=== PATIENT | female | born 1965 | race African-American/Black ===

== ENCOUNTER 2022-10-28 18:50 | Inpatient (IN) | payer OTHER ==
[2022-10-28 19:24] VITALS: BMI 24.7
[2022-10-28] MEDS ORDERED: LACTATED RINGERS SOLUTION 1000 ML INFUS.BAG IV ONE ×3 (19:54→23:33)
[2022-10-28] MEDS ORDERED: FENTANYL CITRATE/PF 50 MCG/ML VIAL ONE (20:43)
[2022-10-28 20:52] LABS: VENOUS BASE EXCESS -3.1 mmol/L (-2-2); VENOUS PCO2 46.6 mmHg (38-52); VENOUS PH 7.318 (7.310-7.410)
[2022-10-28 21:01] LABS: HEMATOCRIT 38.4 % (32.4-45.2); MCH 28.8 pg (25.7-33.7); MCHC 33.8 g/dl (32.0-36.0); MEAN CELL VOLUME 85.2 fl (80-96); MEAN PLT VOLUME 7.5 fl (7.5-11.1); PLATELET COUNT 59 10^3/uL (134-434); RBC 4.51 M/mm3 (3.60-5.2); RDW 16.9 % (11.6-15.6); WHITE BLOOD COUNT 3.4 K/mm3 (4.0-10.0)
[2022-10-28 21:03] LABS: INR 1.16 (0.83-1.09); PROTHROMBIN TIME (PATIENT) 13.4 SEC (9.7-13.0)
[2022-10-28 21:05] LABS: ACTIVATED PTT 37.8 SECONDS (25.2-36.5)
[2022-10-28 21:20] LABS: POTASSIUM 3.4 mmol/L (3.5-5.1)
[2022-10-28 21:22] LABS: CALCIUM 8.3 mg/dL (8.5-10.1)
[2022-10-28 21:23] LABS: ALBUMIN 2.6 g/dl (3.4-5.0); BLOOD UREA NITROGEN 7.8 mg/dL (7-18); MAGNESIUM 1.5 mg/dL (1.8-2.4)
[2022-10-28 21:26] LABS: CREATININE 0.5 mg/dL (0.55-1.3)
[2022-10-28 21:27] LABS: TOT PROT 5.5 g/dl (6.4-8.2)
[2022-10-28 21:28] LABS: BILIRUBIN,TOTAL 1.3 mg/dL (0.2-1)
[2022-10-28 21:51] LABS: ANISOCYTOSIS 1+; MACROCYTOSIS 0
[2022-10-28 22:00] LABS: EPI CELLS 18 /uL (0-25.1); HYALINE CASTS 5 /uL (0-3.1); URINE APPEARANCE CLEAR; URINE BACTERIA 2 /uL (0-1359); URINE BILIRUBIN 1+ (NEGATIVE); URINE COLOR DK YELLOW; URINE GLUCOSE (UA) NEGATIVE (NEGATIVE); URINE KETONE 3+ (NEGATIVE); URINE LEUK ESTERASE TRACE (NEGATIVE); URINE NITRITE NEGATIVE (NEGATIVE); URINE PROTEIN 1+ (NEGATIVE); URINE RBC 21 /uL (0-23.9); URINE WBC 19 /uL (0-25.8)
[2022-10-28] MEDS ORDERED: MAGNESIUM 1GM/D5W 100ML - 100 ML IVPB IVPB ONE (22:36)
[2022-10-28 23:21] LABS: URINE CRYSTALS NONE SEEN /hpf
[2022-10-28] MEDS ORDERED: ACETAMINOPHEN 1000 MG/100 ML BAG IVPB ONE (23:55)
[2022-10-29] MEDS ORDERED: KCL 10 MEQ IVPB 10 MEQ/100 ML INFUS.BAG IVPB ONE ×2 (00:05→02:39)
[2022-10-29] MEDS ORDERED: ACETAMINOPHEN INJECTION 100 ML IVPB ONE (00:05)
[2022-10-29] MEDS: KCL 10 MEQ IVPB 10 MEQ/100 ML INFUS.BAG IVPB SCH ×2 (01:21→03:08)
[2022-10-29] MEDS ORDERED: LACTATED RINGERS SOLUTION 1,000 ML/1,000 ML INFUS.BAG IV SCH (04:00)
[2022-10-29] MEDS ORDERED: SODIUM CHLORIDE 1,000 ML IV SCH (04:00)
[2022-10-29] MEDS ORDERED: MAGNESIUM SULF 50% (8.12 MEQ/2 ML-1 GM VIAL) IVPB ONE (05:30)
[2022-10-29] MEDS ORDERED: KCL 10 MEQ IVPB 10 MEQ/100 ML INFUS.BAG IVPB SCH (07:15)
[2022-10-29 07:35] LABS: BASO % 0.3 % (0-2.0); HEMATOCRIT 38.5 % (32.4-45.2); HEMOGLOBIN 12.7 GM/dL (10.7-15.3); LYMPH % 49.7 % (8-40); MCH 28.7 pg (25.7-33.7); MCHC 32.9 g/dl (32.0-36.0); MEAN CELL VOLUME 87.2 fl (80-96); MEAN PLT VOLUME 7.7 fl (7.5-11.1); MONO % 9.2 % (3.8-10.2); NEUT % 40.8 % (42.8-82.8); PLATELET COUNT 68 10^3/uL (134-434); RBC 4.41 M/mm3 (3.60-5.2); RDW 16.5 % (11.6-15.6); WHITE BLOOD COUNT 3.2 K/mm3 (4.0-10.0)
[2022-10-29] MEDS: POLYETHYLENE GLYCOL (HEALTHYLAX) 3350 17 GM PACKET PO SCH ×3 (07:40→22:11)
[2022-10-29 08:02] LABS: POTASSIUM 3.7 mmol/L (3.5-5.1)
[2022-10-29] MEDS: LEVOTHYROXINE NA 125 MCG TABLET (FP) PO SCH (08:07)
[2022-10-29 08:28] LABS: BLOOD UREA NITROGEN 6.2 mg/dL (7-18)
[2022-10-29 08:29] LABS: ALBUMIN 2.5 g/dl (3.4-5.0); MAGNESIUM 1.7 mg/dL (1.8-2.4)
[2022-10-29 08:31] LABS: CREATININE 0.4 mg/dL (0.55-1.3); PHOSPHOROUS 4.7 mg/dL (2.5-4.9)
[2022-10-29 08:32] LABS: BILIRUBIN,TOTAL 1.3 mg/dL (0.2-1); TOT PROT 5.3 g/dl (6.4-8.2)
[2022-10-29] MEDS ORDERED: BISACODYL 5 MG TABLET.DR (FP) PO ONE (11:01)
[2022-10-29] MEDS ORDERED: LACTULOSE 20 GM/30 ML UDC (FOR ORAL USE ONLY) PO PRN (11:01)
[2022-10-29 11:11] LABS: BILIRUBIN,DIRECT 0.5 mg/dL (0.0-0.2)
[2022-10-29] MEDS ORDERED: MAGNESIUM 2GM/50ML STERILE WATER IVPB IVPB ONE (12:45)
[2022-10-29] MEDS: ACETAMINOPHEN 325 MG TABLET (FP) PO PRN ×2 (16:29→22:12)
[2022-10-29] MEDS ORDERED: LACTATED RINGERS SOLUTION 1,000 ML/1,000 ML INFUS.BAG IV STA (17:29)
[2022-10-29] MEDS ORDERED: PIPERACILLIN/TAZOB 4.5 GM 4.5 GM in DEXTROSE 5%-WATER 100 ML IVPB SCH ×2 (18:00→18:15)
[2022-10-29] MEDS: PIPERACILLIN/TAZOB 4.5 GM 4.5 GM in DEXTROSE 5%-WATER 100 ML IVPB SCH (18:50)
[2022-10-29 18:52] LABS: PH,URINE 5.5 (5.0-8.0); URINE APPEARANCE CLEAR; URINE BILIRUBIN NEGATIVE (NEGATIVE); URINE COLOR YELLOW; URINE GLUCOSE (UA) NEGATIVE (NEGATIVE); URINE KETONE 80 (NEGATIVE); URINE PROTEIN NEGATIVE (NEGATIVE)
[2022-10-29 18:53] LABS: BASO % 0.5 % (0-2.0); HEMATOCRIT 31.3 % (32.4-45.2); HEMOGLOBIN 10.5 GM/dL (10.7-15.3); LYMPH % 43.8 % (8-40); MCH 28.4 pg (25.7-33.7); MCHC 33.4 g/dl (32.0-36.0); MEAN CELL VOLUME 85.2 fl (80-96); MEAN PLT VOLUME 7.5 fl (7.5-11.1); MONO % 10.4 % (3.8-10.2); NEUT % 45.3 % (42.8-82.8); PLATELET COUNT 64 10^3/uL (134-434); RBC 3.68 M/mm3 (3.60-5.2); RDW 16.8 % (11.6-15.6); WHITE BLOOD COUNT 2.5 K/mm3 (4.0-10.0)
[2022-10-29 18:53] LABS: URINE LEUK ESTERASE TRACE (NEGATIVE); URINE NITRITE NEGATIVE (NEGATIVE); URINE UROBILINOGEN 0.2 mg/dL (0.2-1.0)
[2022-10-29 19:08] LABS: POTASSIUM 3.3 mmol/L (3.5-5.1)
[2022-10-29 19:11] LABS: BLOOD UREA NITROGEN 3.4 mg/dL (7-18)
[2022-10-29 19:14] LABS: CREATININE 0.3 mg/dL (0.55-1.3); PHOSPHOROUS 2.2 mg/dL (2.5-4.9)
[2022-10-29 19:15] LABS: BILIRUBIN,TOTAL 1.1 mg/dL (0.2-1)
[2022-10-29 19:37] LABS: ALBUMIN 1.9 g/dl (3.4-5.0); CALCIUM 7.2 mg/dL (8.5-10.1); LACTIC ACID 2.5 mmol/L (0.4-2.0)
[2022-10-29] MEDS: LACTATED RINGERS SOLUTION 1,000 ML/1,000 ML INFUS.BAG IV SCH (22:09)
[2022-10-29] MEDS: HEPARIN NA (PORCINE) 5,000 UNITS/ML 1ML VIAL SQ SCH (22:11)
[2022-10-30] MEDS: PIPERACILLIN/TAZOB 4.5 GM 4.5 GM in DEXTROSE 5%-WATER 100 ML IVPB SCH ×2 (02:00→09:47)
[2022-10-30] MEDS: POLYETHYLENE GLYCOL (HEALTHYLAX) 3350 17 GM PACKET PO SCH (06:47)
[2022-10-30] MEDS: LEVOTHYROXINE NA 125 MCG TABLET (FP) PO SCH (06:48)
[2022-10-30] MEDS: PANTOPRAZOLE 40 MG TABLET PO SCH (09:47)
[2022-10-30] MEDS: metoPROLOL SUCCINATE 25 MG TAB.SR.24H (FP) PO SCH (09:47)
[2022-10-30] MEDS: OLANZapine 5 MG TABLET PO SCH (09:47)
[2022-10-30] MEDS: HEPARIN NA (PORCINE) 5,000 UNITS/ML 1ML VIAL SQ SCH ×2 (09:48→22:43)
[2022-10-30] MEDS ORDERED: POLYETHYLENE GLYCOL (HEALTHYLAX) 3350 17 GM PACKET PO PRN (10:51)
[2022-10-30 18:16] LABS: BASO % 0.1 % (0-2.0); HEMATOCRIT 28.3 % (32.4-45.2); HEMOGLOBIN 9.5 GM/dL (10.7-15.3); LYMPH % 53.1 % (8-40); MCH 28.5 pg (25.7-33.7); MCHC 33.6 g/dl (32.0-36.0); MEAN CELL VOLUME 84.7 fl (80-96); MONO % 6.7 % (3.8-10.2); NEUT % 40.1 % (42.8-82.8); PLATELET COUNT 74 10^3/uL (134-434); RBC 3.34 M/mm3 (3.60-5.2); RDW 16.3 % (11.6-15.6); WHITE BLOOD COUNT 2.1 K/mm3 (4.0-10.0)
[2022-10-30] MEDS: LACTATED RINGERS SOLUTION 1,000 ML/1,000 ML INFUS.BAG IV SCH (18:21)
[2022-10-30] MEDS: PIPERACILLIN/TAZOB 3.375 GM 3.375 GM in DEXTROSE 5%-WATER - 50 ML IVPB SCH (18:21)
[2022-10-30 18:36] LABS: CHLORIDE 113 mmol/L (98-107); POTASSIUM 3.4 mmol/L (3.5-5.1); SODIUM 143 mmol/L (136-145)
[2022-10-30 18:37] LABS: CALCIUM 7.1 mg/dL (8.5-10.1)
[2022-10-30 18:38] LABS: ANION GAP 6 MMOL/L (8-16); CO2 25 mmol/L (21-32); GLUCOSE,RANDOM 74 mg/dL (74-106); MAGNESIUM 1.5 mg/dL (1.8-2.4)
[2022-10-30 18:41] LABS: CREATININE 0.3 mg/dL (0.55-1.3)
[2022-10-30 18:42] LABS: BLOOD UREA NITROGEN 2.4 mg/dL (7-18)
[2022-10-31] MEDS: PIPERACILLIN/TAZOB 3.375 GM 3.375 GM in DEXTROSE 5%-WATER - 50 ML IVPB SCH ×3 (04:00→18:08)
[2022-10-31] MEDS: LEVOTHYROXINE NA 125 MCG TABLET (FP) PO SCH (07:27)
[2022-10-31 08:17] LABS: HEMATOCRIT 25.8 % (32.4-45.2); HEMOGLOBIN 8.8 GM/dL (10.7-15.3); MCH 29.3 pg (25.7-33.7); MEAN PLT VOLUME 9.1 fl (7.5-11.1); PLATELET COUNT 69 10^3/uL (134-434); RDW 16.9 % (11.6-15.6)
[2022-10-31 08:23] LABS: POTASSIUM 3.5 mmol/L (3.5-5.1)
[2022-10-31 08:25] LABS: WHITE BLOOD COUNT 1.8 K/mm3 (4.0-10.0)
[2022-10-31 08:29] LABS: ALBUMIN 1.9 g/dl (3.4-5.0); BLOOD UREA NITROGEN 4.2 mg/dL (7-18); CALCIUM 7.4 mg/dL (8.5-10.1); MAGNESIUM 1.6 mg/dL (1.8-2.4)
[2022-10-31 08:32] LABS: PHOSPHOROUS 2.2 mg/dL (2.5-4.9)
[2022-10-31 08:34] LABS: BILIRUBIN,TOTAL 1.5 mg/dL (0.2-1); TOT PROT 4.2 g/dl (6.4-8.2)
[2022-10-31 08:36] LABS: CREATININE 0.3 mg/dL (0.55-1.3)
[2022-10-31] MEDS: PANTOPRAZOLE 40 MG TABLET PO SCH (09:56)
[2022-10-31] MEDS: OLANZapine 5 MG TABLET PO SCH (09:56)
[2022-10-31] MEDS: metoPROLOL SUCCINATE 25 MG TAB.SR.24H (FP) PO SCH (09:56)
[2022-10-31] MEDS: HEPARIN NA (PORCINE) 5,000 UNITS/ML 1ML VIAL SQ SCH ×2 (09:56→21:36)
[2022-10-31] MEDS: LACTATED RINGERS SOLUTION 1,000 ML/1,000 ML INFUS.BAG IV SCH (18:10)
[2022-11-01] MEDS: PIPERACILLIN/TAZOB 3.375 GM 3.375 GM in DEXTROSE 5%-WATER - 50 ML IVPB SCH ×3 (03:25→17:42)
[2022-11-01] MEDS: LEVOTHYROXINE NA 125 MCG TABLET (FP) PO SCH (06:32)
[2022-11-01 08:16] LABS: CHLORIDE 114 mmol/L (98-107); POTASSIUM 3.7 mmol/L (3.5-5.1); SODIUM 148 mmol/L (136-145)
[2022-11-01 08:30] LABS: CALCIUM 7.6 mg/dL (8.5-10.1)
[2022-11-01 08:31] LABS: ANION GAP 9 MMOL/L (8-16); CO2 25 mmol/L (21-32); GLUCOSE,RANDOM 68 mg/dL (74-106); MAGNESIUM 1.4 mg/dL (1.8-2.4)
[2022-11-01 08:32] LABS: CREATININE 0.2 mg/dL (0.55-1.3); PHOSPHOROUS 2.3 mg/dL (2.5-4.9)
[2022-11-01 08:36] LABS: HEMATOCRIT 26.3 % (32.4-45.2); HEMOGLOBIN 8.8 GM/dL (10.7-15.3); MCH 28.8 pg (25.7-33.7); MCHC 33.4 g/dl (32.0-36.0); MEAN CELL VOLUME 86.4 fl (80-96); MEAN PLT VOLUME 9.1 fl (7.5-11.1); PLATELET COUNT 73 10^3/uL (134-434); RBC 3.05 M/mm3 (3.60-5.2)
[2022-11-01 08:39] LABS: BLOOD UREA NITROGEN 2.2 mg/dL (7-18)
[2022-11-01 08:45] LABS: WHITE BLOOD COUNT 1.7 K/mm3 (4.0-10.0)
[2022-11-01] MEDS: metoPROLOL SUCCINATE 25 MG TAB.SR.24H (FP) PO SCH (09:46)
[2022-11-01] MEDS: HEPARIN NA (PORCINE) 5,000 UNITS/ML 1ML VIAL SQ SCH ×2 (09:46→21:13)
[2022-11-01] MEDS: OLANZapine 5 MG TABLET PO SCH (09:47)
[2022-11-01] MEDS: PANTOPRAZOLE 40 MG TABLET PO SCH (09:47)
[2022-11-01] MEDS ORDERED: POTASSIUM PHOSPHATE 30 MM in DEXTROSE 5%-WATER - 500 ML IVPB ONE (15:42)
[2022-11-01] MEDS ORDERED: MAGNESIUM SULF 50% (8.12 MEQ/2 ML-1 GM VIAL) IVPB ONE (15:43)
[2022-11-01] MEDS ORDERED: POTASSIUM CHLORIDE ORAL LIQUID 20 MEQ/15 ML PO ONE (16:02)
[2022-11-01] MEDS: NAPH,MB-DB/K PH,MBDB POWDER PACKET PO SCH ×2 (16:24→21:15)
[2022-11-01] MEDS: ACETAMINOPHEN 325 MG TABLET (FP) PO PRN (19:22)
[2022-11-02] MEDS: PIPERACILLIN/TAZOB 3.375 GM 3.375 GM in DEXTROSE 5%-WATER - 50 ML IVPB SCH ×3 (00:59→17:48)
[2022-11-02] MEDS: NAPH,MB-DB/K PH,MBDB POWDER PACKET PO SCH (06:32)
[2022-11-02] MEDS: LEVOTHYROXINE NA 125 MCG TABLET (FP) PO SCH (06:32)
[2022-11-02 09:25] LABS: HEMATOCRIT 31.1 % (32.4-45.2); HEMOGLOBIN 10.4 GM/dL (10.7-15.3); MCH 28.7 pg (25.7-33.7); MCHC 33.3 g/dl (32.0-36.0); MEAN CELL VOLUME 86.4 fl (80-96); MEAN PLT VOLUME 8.8 fl (7.5-11.1); PLATELET COUNT 81 10^3/uL (134-434); RDW 16.8 % (11.6-15.6)
[2022-11-02] MEDS: PANTOPRAZOLE 40 MG TABLET PO SCH (09:26)
[2022-11-02] MEDS: OLANZapine 5 MG TABLET PO SCH (09:27)
[2022-11-02] MEDS: metoPROLOL SUCCINATE 25 MG TAB.SR.24H (FP) PO SCH (09:28)
[2022-11-02 09:46] LABS: WHITE BLOOD COUNT 1.6 K/mm3 (4.0-10.0)
[2022-11-02 09:49] LABS: CHLORIDE 109 mmol/L (98-107)
[2022-11-02 09:53] LABS: ALBUMIN 2.2 g/dl (3.4-5.0); CO2 26 mmol/L (21-32); GLUCOSE,RANDOM 73 mg/dL (74-106); MAGNESIUM 1.7 mg/dL (1.8-2.4)
[2022-11-02 09:54] LABS: CALCIUM 7.7 mg/dL (8.5-10.1)
[2022-11-02 09:56] LABS: CREATININE 0.3 mg/dL (0.55-1.3); SGOT/AST 29 U/L (15-37); SGPT/ALT 24 U/L (13-61)
[2022-11-02 09:57] LABS: BILIRUBIN,TOTAL 1.1 mg/dL (0.2-1); TOT PROT 4.8 g/dl (6.4-8.2)
[2022-11-02 09:58] LABS: ALK PHOS 44 U/L (45-117)
[2022-11-02 10:05] LABS: ANION GAP 11 MMOL/L (8-16); BLOOD UREA NITROGEN 1.3 mg/dL (7-18); SODIUM 146 mmol/L (136-145)
[2022-11-02] MEDS: HEPARIN NA (PORCINE) 5,000 UNITS/ML 1ML VIAL SQ SCH ×2 (10:46→21:09)
[2022-11-02] MEDS ORDERED: MAGNESIUM 2GM/50ML STERILE WATER IVPB IVPB ONE (14:00)
[2022-11-02] MEDS ORDERED: PIPERACILLIN/TAZOBACTAM 3.375 GM VIAL IVPB ONE (17:02)
[2022-11-03] MEDS: PIPERACILLIN/TAZOB 3.375 GM 3.375 GM in DEXTROSE 5%-WATER - 50 ML IVPB SCH ×3 (03:18→19:35)
[2022-11-03] MEDS: LEVOTHYROXINE NA 125 MCG TABLET (FP) PO SCH (06:07)
[2022-11-03 07:54] LABS: HEMATOCRIT 28.7 % (32.4-45.2); HEMOGLOBIN 9.6 GM/dL (10.7-15.3); MCH 28.9 pg (25.7-33.7); MCHC 33.5 g/dl (32.0-36.0); MEAN CELL VOLUME 86.2 fl (80-96); MEAN PLT VOLUME 8.9 fl (7.5-11.1); PLATELET COUNT 84 10^3/uL (134-434); RBC 3.32 M/mm3 (3.60-5.2); RDW 16.9 % (11.6-15.6)
[2022-11-03 07:59] LABS: WHITE BLOOD COUNT 1.6 K/mm3 (4.0-10.0)
[2022-11-03 08:08] LABS: CHLORIDE 108 mmol/L (98-107); POTASSIUM 3.7 mmol/L (3.5-5.1); SODIUM 145 mmol/L (136-145)
[2022-11-03 08:11] LABS: CALCIUM 7.8 mg/dL (8.5-10.1); GLUCOSE,RANDOM 63 mg/dL (74-106)
[2022-11-03 08:12] LABS: ALBUMIN 2.1 g/dl (3.4-5.0); ANION GAP 9 MMOL/L (8-16); CO2 28 mmol/L (21-32); MAGNESIUM 1.8 mg/dL (1.8-2.4)
[2022-11-03 08:14] LABS: CREATININE 0.3 mg/dL (0.55-1.3); PHOSPHOROUS 3.1 mg/dL (2.5-4.9); SGPT/ALT 21 U/L (13-61)
[2022-11-03 08:15] LABS: SGOT/AST 26 U/L (15-37)
[2022-11-03 08:16] LABS: BILIRUBIN,TOTAL 0.9 mg/dL (0.2-1); TOT PROT 4.5 g/dl (6.4-8.2)
[2022-11-03 08:17] LABS: ALK PHOS 41 U/L (45-117)
[2022-11-03 08:21] LABS: BLOOD UREA NITROGEN 1.3 mg/dL (7-18)
[2022-11-03] MEDS: HEPARIN NA (PORCINE) 5,000 UNITS/ML 1ML VIAL SQ SCH ×2 (09:51→22:02)
[2022-11-03] MEDS: PANTOPRAZOLE 40 MG TABLET PO SCH (09:51)
[2022-11-03] MEDS: metoPROLOL SUCCINATE 25 MG TAB.SR.24H (FP) PO SCH (09:52)
[2022-11-04] MEDS: PIPERACILLIN/TAZOB 3.375 GM 3.375 GM in DEXTROSE 5%-WATER - 50 ML IVPB SCH ×3 (03:17→17:37)
[2022-11-04] MEDS: LEVOTHYROXINE NA 125 MCG TABLET (FP) PO SCH (06:46)
[2022-11-04 07:59] LABS: HEMATOCRIT 30.3 % (32.4-45.2); MCH 28.8 pg (25.7-33.7); MEAN CELL VOLUME 87.2 fl (80-96); MEAN PLT VOLUME 8.5 fl (7.5-11.1); PLATELET COUNT 87 10^3/uL (134-434); RBC 3.47 M/mm3 (3.60-5.2); WHITE BLOOD COUNT 2.5 K/mm3 (4.0-10.0)
[2022-11-04 08:19] LABS: CHLORIDE 108 mmol/L (98-107); POTASSIUM 3.7 mmol/L (3.5-5.1); SODIUM 143 mmol/L (136-145)
[2022-11-04 08:21] LABS: ALBUMIN 2.2 g/dl (3.4-5.0); CALCIUM 7.9 mg/dL (8.5-10.1)
[2022-11-04 08:22] LABS: ANION GAP 8 MMOL/L (8-16); CO2 28 mmol/L (21-32); GLUCOSE,RANDOM 72 mg/dL (74-106); MAGNESIUM 1.5 mg/dL (1.8-2.4)
[2022-11-04 08:25] LABS: CREATININE 0.4 mg/dL (0.55-1.3); SGOT/AST 25 U/L (15-37); SGPT/ALT 22 U/L (13-61)
[2022-11-04 08:27] LABS: TOT PROT 4.6 g/dl (6.4-8.2)
[2022-11-04 08:28] LABS: ALK PHOS 42 U/L (45-117)
[2022-11-04 08:31] LABS: BLOOD UREA NITROGEN 1.9 mg/dL (7-18)
[2022-11-04] MEDS: PANTOPRAZOLE 40 MG TABLET PO SCH (10:05)
[2022-11-04] MEDS: metoPROLOL SUCCINATE 25 MG TAB.SR.24H (FP) PO SCH (10:05)
[2022-11-04] MEDS: HEPARIN NA (PORCINE) 5,000 UNITS/ML 1ML VIAL SQ SCH (10:05)
[2022-11-04] MEDS ORDERED: MAGNESIUM SULF 50% (8.12 MEQ/2 ML-1 GM VIAL) IVPB ONE (14:15)
[2022-11-04 16:04] VITALS: BP 108/72; PULSE 97; RESP 18; TEMP 98.8
== END 2022-11-04 20:46 | DRG 720 ==
LOC: JER 18:50 → JERBED 10-29 → OBSVTOIN 10-29 03:51 → JERBED 10-29 04:32 → J4W 10-29 05:20
PROVIDERS: ADMIT Internal Medicine; ATTEND Internal Medicine
DX: A41.9 Sepsis, unspecified organism (principal); D76.1 Hemophagocytic lymphohistiocytosis; D61.818 Other pancytopenia; E83.42 Hypomagnesemia; K21.9 Gastro-esophageal reflux disease without esophagitis; E03.9 Hypothyroidism, unspecified; K56.41 Fecal impaction; C50.919 Malignant neoplasm of unspecified site of unspecified female breast; D25.9 Leiomyoma of uterus, unspecified; I10 Essential (primary) hypertension; E87.6 Hypokalemia; N39.0 Urinary tract infection, site not specified; R21 Rash and other nonspecific skin eruption; K76.9 Liver disease, unspecified; T45.1X5A Adverse effect of antineoplastic and immunosuppressive drugs, initial encounter; B96.5 Pseudomonas (aeruginosa) (mallei) (pseudomallei) as the cause of diseases classified elsewhere; B96.20 Unspecified Escherichia coli [E. coli] as the cause of diseases classified elsewhere
CPT/HCPCS: 36415; 71045-TC-FY; 71275-TC; 74019-TC-FY; 74177-TC; 80048; 80053; 81003; 82248; 82803; 82962; 83605; 83690; 83735; 84100; 84443; 85025; 85027; 85610; 85730; 86900; 87086; 87186; 93005; 93010; 97116-GP; 97162-GP; 99285-25; G0378; J1644; Q9967